=== PATIENT | male | born 1995 | race Caucasian/White ===

== ENCOUNTER 2018-01-20 14:46 | Outpatient (RCR) | payer SELFPAY ==
--- NOTE | 2018-01-20 15:04 | COCO.VHC ---
Follow up/Problem - Follow up/Problem Issue Follow Up/Problem: Follow Up - Notes SR #:: [id number] [facility] REP Name:: Babita Notes:: Pt left vm that he created an account and it was not showing that he was enrolled in a plan. he should have just created asign on so that [facility] could connect him to my acct. Pt has not made a payment so no [facility] ID has been issied for him. i called pt and suggested that he call in and make the payment so that an ID can be issued that he can give to the [facility].
--- NOTE | 2018-01-20 15:15 | PDOC.VHC_ITS ---
Follow up/Problem - Follow up/Problem Issue Follow Up/Problem: Follow Up - Notes SR #:: [id number] [facility] REP Name:: Babita Notes:: Pt left vm that he created an account and it was not showing that he was enrolled in a plan. he should have just created asign on so that [facility] could connect him to my acct. Pt has not made a payment so no [facility] ID has been issied for him. i called pt and suggested that he call in and make the payment so that an ID can be issued that he can give to the [facility].
== END 2018-02-15 23:59 | disposition home or self-care (01) ==
LOC: COCO 14:46
PROVIDERS: PCP Family Medicine; Visit Provider Family Medicine

== ENCOUNTER 2019-01-27 19:35 | Outpatient (REF) | payer OTHER, SELFPAY ==
[2019-01-29 12:20] LABS: Chlamydia Result Negative; GC Result Negative; Specimen Description URINE
== END 2019-01-27 19:55 ==
LOC: LBN 19:35
PROVIDERS: PCP Family Medicine; Visit Provider Family Medicine
DX: N45.1 Epididymitis (principal)
CPT/HCPCS: 87491; 87591

== ENCOUNTER 2020-11-29 15:57 | Outpatient (CLI) | payer BC, SELFPAY ==
[2020-11-29 08:50] LABS: Hemoglobin A1C 4.9 % (<5.7)
[2020-11-29 09:34] LABS: ALT 43 U/L (16-63); AST 17 U/L (15-37); Albumin 4.6 g/dL (3.4-5.0); Alkaline Phosphatase 53 U/L (46-116); Anion Gap 9.3 mmol/L (3-11); BUN 14 mg/dL (7-18); Bilirubin, Total 0.5 mg/dL (0.2-1.0); CO2 28.7 mmol/L (21.0-32.0); CREATININE 0.9 mg/dL (0.70-1.30); Calcium 9.3 mg/dL (8.5-10.1); Chloride 104 mmol/L (98-107); Glucose 91 mg/dL (74-106); Potassium 4.1 mmol/L (3.5-5.1); Sodium 142 mmol/L (136-145); Total Protein 7.9 g/dL (6.4-8.2)
[2020-11-29 20:51] LABS: Calculated LDL 131 mg/dL (<100); Cholesterol 198 mg/dL (<200); HDL Cholesterol 48 mg/dL (40-60); Triglyceride 95 mg/dL (<150)
== END 2020-11-29 15:58 | disposition home or self-care (01) ==
LOC: LBO 15:57
PROVIDERS: PCP Nurse Practitioner Family; Visit Provider Nurse Practitioner Family
DX: Z00.00 Encounter for general adult medical examination without abnormal findings (principal); Z13.1 Encounter for screening for diabetes mellitus; Z13.220 Encounter for screening for lipoid disorders
CPT/HCPCS: 36415; 80053; 80061; 83036

== ENCOUNTER 2021-12-31 08:21 | Outpatient (CLI) | payer BC, SELFPAY ==
--- NOTE | 2021-12-31 08:15 | RT.EKG_ITS ---
APPROVED REPORT Exam: Resting ECG Reason for Exam: dizziness Patient Location: O HR:61 bpm ECG Measurements Heart Rate 61 AXIS MO 137 P 51 QRSd 101 QRS 73 QT 399 T 59 QTc 402 Conclusion Sinus rhythm...normal P axis, V-rate 50- 99 Normal Electrocardiogram
== END 2021-12-31 08:22 | disposition home or self-care (01) ==
LOC: DI.CM 08:21
PROVIDERS: PCP Nurse Practitioner Family; Visit Provider Nurse Practitioner Family
DX: I10 Essential (primary) hypertension (principal); R42 Dizziness and giddiness
CPT/HCPCS: 93010

== ENCOUNTER 2022-02-06 02:55 | Outpatient (CLI) | payer BC, SELFPAY ==
[2022-02-06 08:07] LABS: HCT 43.6 % (40.0-50.0); MCH 30.4 pg (27.0-33.0); MCHC 34.4 % (32.0-36.0); MCV 88 fL (80-95); MPV 9.4 fL (8.0-11.0); Platelet Count 239 10^3/uL (130-400); RBC 4.93 10^6/uL (4.36-5.78); RDW 11.9 % (11.8-14.1); RDW-SD 38.9 fL; WBC 4.47 10^3/uL (4.4-10.8)
== END 2022-02-06 02:56 | disposition home or self-care (01) ==
PROVIDERS: PCP Nurse Practitioner Family; Visit Provider Nurse Practitioner Family
DX: R42 Dizziness and giddiness (principal)
CPT/HCPCS: 36415; 85027

== ENCOUNTER 2023-01-23 10:01 | Outpatient (CLI) | payer BC, SELFPAY | END 2023-01-23 10:02 | disposition home or self-care (01) | PROVIDERS: PCP Nurse Practitioner Family; Visit Provider Nurse Practitioner Family | DX: R00.2 Palpitations (principal) | CPT/HCPCS: 93246 ==

== ENCOUNTER 2023-02-24 07:29 | Outpatient (CLI) | payer BC, SELFPAY ==
--- NOTE | 2023-02-24 09:02 | W.CARDEVENT ---
Date of service: 02/24/23 Time of Service: 09:02 Cardiac Event Recorder Referring Provider:: Roger Najera Indications:: Palpitations Cardiac Event Note: This is a cardiac event monitor ordered for palpitations. Patient was monitored for 13 days and 7 hours Rhythm throughout was sinus with an average heart rate of 71. Minimum was 41, maximum 162 There were very rare isolated atrial and ventricular ectopic beats There was no atrial fibrillation, no SVT, no high-grade AV block, no pauses greater than 3 seconds Symptoms were reported which had no correlation to any dysrhythmia
== END 2023-02-24 07:30 | disposition home or self-care (01) ==
LOC: CARDOPNVT 07:29
PROVIDERS: PCP Nurse Practitioner Family; Visit Provider Internal Medicine Cardiovascular Disease
DX: R00.2 Palpitations (principal)

== ENCOUNTER 2023-06-01 14:07 | Emergency (ER) | payer BC, SELFPAY ==
[2023-06-01 14:14] VITALS: BP 156/86; PULSE 92; RESP 18; TEMP 36.8; O2SAT 99
--- NOTE | 2023-06-01 14:31 | ED.GENADUL_ITS ---
HPI General Stated Complaint: Laceration CHAYITO: 4 Date/Time Provider Initiated Documentation: 06/01/23 14:18. HPI Narrative: MDM This is an overall very well-appearing normothermic and not tachycardic dnaud-tati-vunigwdy male with right long finger laceration which will require primary closure in the ED. Patient has intact flexor tendon function so my suspicion for tendon injury is exceedingly low. His tetanus has been updated in the past 3 years so no indication for updated immunization. Patient is not anticoagulated so not at ongoing risk for recurrent bleeding. No indication for prophylactic antibiotics. No pain out of proportion to suggest necrotizing soft tissue infection. Patient's wound was closed using nonabsorbable sutures. Please see separate procedure note for details. Emergency department Cattle Examiner Alex dressed the patient's wound. Given the superficial nature of the laceration no indication for plain films. Given laceration with knife my suspicion for retained foreign body was exceedingly low so I did not feel that the patient required x-rays. I advised ED return or PCP or urgent care follow- up in 7 to 10 days to have the sutures removed. We also discussed ED return for any fevers, streaking signs of infection, foul-smelling drainage or any pus from his wound. He understood his return indications and was discharged with empiric trial of expectant outpatient management. In the emergency department he received acetaminophen and ibuprofen for pain. Chronic conditions affecting the care of the patient: N/A History obtained from an outside historian: N/A External record review: N/A Medications: Acetaminophen ibuprofen Social determinants of health affecting disposition: N/A Management discussed with: N/A Treatment/interventions considered: N/A Response to therapies provided: N/A HPI This is a previously healthy phsdc-gzbf-frlykiki male arrived to the emergency department via private vehicle after a laceration he sustained this afternoon to his right long finger. Patient was reportedly opening a new X-Acto knife when he inadvertently cut his long finger on the blade. He reports that his tetanus was updated in 2020. He is not anticoagulated. He has been moving his finger without limitations. No other injuries. Was in his previous state of health earlier today with no fevers chills nausea vomiting chest pain or shortness of breath. Exam General: Well-appearing in no acute distress speaking in complete sentences. Head: Normocephalic, atraumatic. Eye: Extraocular eye movements intact. No conjunctival injection. No scleral icterus. Ear, nose, mouth, throat: Grossly normal inspection. Normal voice, handling secretions normally. Neck: Trachea midline. Cardiovascular: Well-perfused distal extremities. Respiratory: Nonlabored respiration. Gastrointestinal: Nondistended abdomen. Musculoskeletal: On the palmar surface of the right long finger there is a crescentic approximately 2 cm hemostatic laceration that violates the subcutaneous tissue. Patient has intact sensation and motor function in the right hand across the radial, median, and ulnar nerve distributions. He has 2+ right radial pulse. Cap refill in the right long finger is less than 2 seconds. He is intact motor function in the right long finger across the MCP, PIP, and DIP joints on flexion and extension. Skin: Normal for age and race, grossly normal temperature and turgor. No acute rash. Neurologic: Alert and appropriate, no apparent acute deficits. Psychiatric: Mood and manner are appropriate. Grooming and personal hygiene are appropriate. Related Data Home Medications Medication Instructions Recorded Confirmed acetaminophen 500 mg capsule 500 mg PO QID PRN 05/13/18 02/19/23 triamcinolone acetonide 0.1 % 1 applic topical BID #30 grams 11/22/20 02/19/23 topical cream sertraline 50 mg tablet 50 mg PO DAILY #90 tabs 01/17/23 06/01/23 Previous Rx's Medication Instructions Recorded triamcinolone acetonide 0.1 % 1 applic topical BID #30 grams 11/22/20 topical cream sertraline 50 mg tablet 50 mg PO DAILY #90 tabs 01/17/23 Allergies Allergy/AdvReac Type Severity Reaction Status Date / Time No Known Allergies Allergy Verified 02/19/23 10:00 [facility] All Active Problems (Updated 06/01/23 @ 15:21 by Rick Sharpe MD) Laceration of right middle finger (Acute) Heart palpitations (Acute) Dizziness (Acute) Infrequently Anxiety (Chronic) Medical History (Updated 06/01/23 @ 15:21 by Rick Sharpe MD) History of concussion Social History (Updated 11/24/20 @ 10:05 by Monty Montana) Smoking/Tobacco Use Status: Never Smoking risk assessment performed?: Yes Alcohol Intake: current Alcohol Intake frequency: holidays/special occasions only Drug use: Occasionally Substance use type: marijuana Caregiver/Support person: No Household members: significant other Housing: house Communication Needs: None Do you need help understanding health information?: Rarely Pets and animals: Yes Pets and animals: cat(s) and dog(s) Sexually active: Yes Do you think of yourself as: straight/heterosexual Current gender identity: male What is your relationship status?: living with partner How often do you talk on the phone with friends or family?: three or more times per week How often do you get together with friends or relatives?: twice per week How often do you attend catholic or jainism services?: decline to answer Do you belong to any clubs or organized social groups?: no Panel score (0-1 are the most socially isolated patients): 2 What type of physical activity do you participate in: walking Duration: 30-45 minutes/day Frequency: 3-4 times per week Rosemary/Latter Day: No preference Special rosemary needs: No Seatbelt use: always Helmet use: Yes Helmet use: always Drive intox or ride w/intox route salesman and driver: No Do you feel safe at home: Yes Do you feel safe in your relationship?: Yes Course Vital Signs Vital signs: Vital Signs Temperature 36.8 C 06/01/23 14:14 Pulse 92 H 06/01/23 14:14 Respiratory Rate 18 06/01/23 14:14 Blood Pressure 156/86 H 06/01/23 14:14 Pulse Oximetry 99 06/01/23 14:14 Temperature 36.8 C 06/01/23 14:14 Temperature Source Oral 06/01/23 14:14 Pulse 92 H 06/01/23 14:14 Respiratory Rate 18 06/01/23 14:14 Blood Pressure 156/86 H 06/01/23 14:14 Blood Pressure Position Sitting 06/01/23 14:14 Pulse Oximetry 99 06/01/23 14:14 Oxygen Delivery Method Room Air 06/01/23 14:14 Oxygen Flow Rate 0 06/01/23 14:14 Pain Level 0 06/01/23 14:14 Procedures Laceration Laceration 1: Site: upper extremity Side (If applicable): right Size (cm): 2 Description: linear Depth: simple, single layer Local Anesthetic: Lidocaine 1% (Digital block) Pre-repair: wound explored and irrigated extensively (Irrigated extensively using cold tap water) Skin layer closed with: other (5-0 Prolene) Size (cm): 5-0 Number of sutures: 5 Technique: simple, interrupted Medical Decision Making Quality:SDOH Health Related Social Needs: No Data to Display Discharge Plan Disposition Patient Disposition: Home Discharge Details Clinical Impression: Laceration of right middle finger Primary Care Provider: Roger Najera ED Provider: Rick Sharpe Home Meds and New Rx's Prescriptions: Continued triamcinolone acetonide 0.1 % cream 1 applic topical BID Qty: 30 2RF sertraline 50 mg tablet 50 mg PO DAILY Qty: 90 3RF acetaminophen 500 mg capsule 500 mg PO QID PRN Discharge Instructions Instructions: Finger Laceration (ED) Additional Instructions: You were seen in the emergency department for your finger laceration. Your tetanus indeed was updated in 2020. Please return to the emergency department if you develop fevers streaking signs of infection or any worsening pain. Please follow-up with your primary care urgent care or return to the emergency department in 7 to 10 days to have your sutures removed. For your pain please take medications as follows: 1. Take acetaminophen (Tylenol), 1,000 mg (two 500 mg tabs) every 6 hours [2. Take ibuprofen (Advil), 400 mg every 6 hours.] Discharge Data Discharge Date/Time-TO BE ENTERED AT DEPARTURE: 06/01/23 15:43
[2023-06-01] MEDS: Ibuprofen 600 MG TAB PO (15:27)
[2023-06-01] MEDS: Acetaminophen 500 MG TAB 1000 MG PO (15:28)
== END 2023-06-01 15:43 | disposition home or self-care (01) ==
PROVIDERS: Emergency Provider Emergency Medicine; PCP Nurse Practitioner Family
DX: S61.242A Puncture wound with foreign body of right middle finger without damage to nail, initial encounter (principal); W26.0XXA Contact with knife, initial encounter
CPT/HCPCS: 12001

== ENCOUNTER 2023-12-03 10:33 | Outpatient (CLI) | payer BC, SELFPAY ==
[2023-12-03 12:31] LABS: Calculated LDL 160 mg/dL (<100); Cholesterol 230 mg/dL (<200); HDL Cholesterol 43 mg/dL (40-60); Triglyceride 135 mg/dL (<150)
[2023-12-03 12:35] LABS: Hemoglobin A1C 5.1 % (<5.7)
== END 2023-12-03 10:34 | disposition home or self-care (01) ==
LOC: LOS 10:33
PROVIDERS: PCP Nurse Practitioner Family; Referring Provider Nurse Practitioner Family; Visit Provider Nurse Practitioner Family
DX: Z13.220 Encounter for screening for lipoid disorders (principal); Z13.1 Encounter for screening for diabetes mellitus
CPT/HCPCS: 36415; 80061; 83036

== ENCOUNTER 2024-03-27 16:09 | Emergency (ER) | payer BC, SELFPAY ==
[2024-03-27] VITALS (8 sets, daily range): BP systolic 122–188; BP diastolic 45–85; PULSE 70–105; RESP 10–22; TEMP 36.6–36.7; O2SAT 91–100
--- NOTE | 2024-03-27 16:15 | DI.RAD_ITS ---
Exam(s) XR ANKLE RT COMPLETE XR TIB/FIB RT EXAM: XR ANKLE RT COMPLETE and XR tib/fib RT CLINICAL HISTORY: pain s/p fall. TECHNIQUE: 2D digital imaging was performed of the right tib/fib and ankle. Seven images were obtai richie. AP, lateral and oblique views were obtained. COMPARISON: There are no priors for comparison. FINDINGS: BONES: There is an acute comminuted fracture of the distal diaphysis of the right fibula. The fractu re occurs 4 cm above the ankle mortise. There is mild posterior angulation and displacement of the d istal fracture. There is also an acute mildly displaced posterior malleolar fracture. There is a co mminuted fracture of the medial malleolus. No bony destructive lesion is seen. JOINTS: There is widening of the ankle joint particularly anteriorly as appreciated on the lateral vi ew. There also is very mild anterior subluxation of the tibia relative to the talus. SOFT TISSUE: There is soft tissue swelling around the ankle. IMPRESSION: 1. Acute displaced fractures involving both the posterior malleolus in the medial malleolus. 2. Comminuted angulated fracture involving the distal fibula. 3. Widening of the ankle joint particularly anteriorly with mild anterior subluxation of the tibia re lative to the talus. DATA REPOSITORY: RADIATION DOSE DELIVERED:
--- NOTE | 2024-03-27 16:23 | W.ED.GENAD ---
Discharge Plan Disposition Patient Disposition: Home Condition: Stable Discharge Details Clinical Impression: Ankle fracture, right Primary Care Provider: Roger Najera ED Provider: Zaire Nava Home Meds and New Rx's Prescriptions: New Morphine Ir, 4 Tabs/Btl [Msir, 4 Tabs/Btl] 15 mg PO DISPENSE Qty: 0 0RF Continued sertraline 50 mg tablet 50 mg PO DAILY Qty: 90 3RF Discontinued triamcinolone acetonide 0.1 % cream 1 applic topical BID Qty: 30 2RF No Action acetaminophen 500 mg capsule 500 mg PO QID PRN Discharge Instructions Additional Instructions: You had a fracture and dislocation of your ankle that had to be reduced under sedation. You should remain nonweightbearing until you follow-up with orthopedics. Call their office on Friday. I would also recommend having nothing by mouth except water after midnight on Friday in case they have the ability to do surgery on Friday. You can take 1000 mg of acetaminophen and 600 mg of ibuprofen every 6 hours as needed If you need additional pain medication he can take the morphine every 8 hours. If you feel more ill or have severe uncontrolled pain return to the emergency department for reevaluation. Referrals: Mohsen Warren MD [ [facility] STAFF PHYSICIAN] - [facility] General Mode of arrival: wheelchair. Date/Time Provider Initiated Documentation: 03/27/24 16:15. Limitations to Documentation: no limitations. Information obtained by: patient. History of Present Illness 29 year old M presents to the emergency department with the chief complaint of right ankle pain, described as moderate, and is localized to the right and lower extremity. Patient started experiencing this hour(s) (1) and it has been constant. No relieving factors improve symptom(s), Movement worsens symptoms . Patient notes no other symptoms.. Patient did receive the following treatments prior to arrival, none Related Data Home Medications ?Medication ?Instructions ?Recorded ?Confirmed acetaminophen 500 mg capsule 500 mg PO QID PRN 05/13/18 03/27/24 sertraline 50 mg tablet 50 mg PO DAILY #90 tabs 02/11/24 03/27/24 MORPHine IR, 4 tabs/btl [MSIR, 4 15 mg PO DISPENSE ##0 03/27/24 tabs/btl] Previous Rx's ?Medication ?Instructions ?Recorded sertraline 50 mg tablet 50 mg PO DAILY #90 tabs 02/11/24 MORPHine IR, 4 tabs/btl [MSIR, 4 15 mg PO DISPENSE ##0 03/27/24 tabs/btl] Allergies Allergy/AdvReac Type Severity Reaction Status Date / Time childrens motrin Allergy Intermediate Psychosis Uncoded 03/27/24 16:14 General Stated Complaint: Orthopedic CHAYITO: 3 Review of Systems All systems reviewed & are unremarkable except as noted in HPI and below Constitutional Constitutional: Denies chills, Denies fever(s) and Denies weakness Cardiovascular Cardiovascular: Denies chest pain and Denies dyspnea Respiratory Respiratory: Denies cough and Denies dyspnea Gastrointestinal Gastrointestinal: Denies abdominal pain, Denies nausea and Denies vomiting Integumentary/Breasts Skin/Breast: Denies rash Neurologic Neurologic: Denies weakness Exam Const General: no acute distress Orientation: alert HENMT Head: normal to inspection Ears: external ears normal General nose exam: external nose normal Mouth: moist mucous membranes Eyes General: appearance normal, both eyes and all related structures Neck Neck: normal visual inspection Resp Effort & Inspection: normal respiratory effort and able to speak in complete sentences Cardio Rate: regular rate Skin General skin exam: no rashes or lesions noted Neuro General: patient alert and patient oriented x3 Extrem General: capillary refill normal Psych Mental Status: mental status grossly normal Course Vital Signs Vital signs: Vital Signs Temperature 36.6 C 03/27/24 16:12 Pulse 100 H 03/27/24 16:12 Respiratory Rate 16 03/27/24 16:12 Blood Pressure 146/83 H 03/27/24 16:12 Pulse Oximetry 100 03/27/24 16:12 Temperature 36.6 C 03/27/24 16:12 Temperature Source Oral 03/27/24 16:12 Pulse 100 H 03/27/24 16:12 Respiratory Rate 16 03/27/24 16:12 Respiratory Effort Normal, Non-Labored 03/27/24 16:15 Blood Pressure 146/83 H 03/27/24 16:12 Pulse Oximetry 100 03/27/24 16:12 Oxygen Delivery Method Room Air 03/27/24 16:12 Oxygen Flow Rate 0 03/27/24 16:12 Pain Level 5 03/27/24 16:12 Procedures Procedural Sedation Indication: fracture/dislocation reduction ASA Class: I Preparation: rn cardiac rehab applied, pulse oximeter, capnometry used, supplemental O2 applied and suction/airway equipment at bedside Ketamine: IV Ketamine dose (mg): 140 Patient Tolerated Procedure: well Complications: none Medical Decision Making 29-year-old male who denies any chronic medical problems comes in with right ankle injury. He says he was on wheeled shoes when he fell backwards. He did not strike his head or have loss of consciousness but had immediate pain in his right ankle. He has tenderness and swelling of the right ankle and has tenderness throughout. He has no range of motion due to pain. No pain in the foot, no tenderness on exam. He has intact sensation and pulses in the foot. No tenderness in the knee, no tenderness in the femur or hip. He has no pain elsewhere. Suspect fracture/dislocation, will obtain x-rays to further evaluate. X-ray shows fracture of the posterior and medial malleolus and a comminuted angulated fracture involving the distal fibula. Patient is stable no new pain elsewhere. He consents to sedation to try to reduce the fracture dislocations. No complications after patient was sedated with 140 mg of ketamine. Follow-up x-rays show improved reduction of fracture dislocations. Patient is neurovascularly intact, has normal sensation in the foot. Is able to move all his toes. I have placed him on the follow-up list to see orthopedics and he will remain nonweightbearing. Return precautions given. IMPRESSION: 1. Acute displaced fractures involving both the posterior malleolus in the medial malleolus. 2. Comminuted angulated fracture involving the distal fibula. 3. Widening of the ankle joint particularly anteriorly with mild anterior subluxation of the tibia relative to the talus. Differential Diagnosis Differential Diagnosis: Fracture, dislocation, sprain Quality:SDOH Health Related Social Needs: No Data to Display PFSH All Active Problems (Updated 03/27/24 @ 18:26 by Zaire Nava MD) Ankle fracture, right (Acute) Obesity (BMI 30-39.9) (Acute) Heart palpitations (Acute) Dizziness (Acute) Infrequently Anxiety (Chronic) Medical History History of concussion Family History (Updated 12/03/23 @ 10:09 by Greta Easton) Father Heart disease Social History (Updated 12/09/23 @ 13:38 by Dayana Devlin Smoking/Tobacco Use Status: Never Smoking risk assessment performed?: Yes Alcohol Intake: never Drug use: Daily Substance use type: marijuana Counseling given: No Adopted: No Caregiver/Support person: No Household members: spouse Housing: house Communication Needs: None Education Level: college Do you need help understanding health information?: Never current occupation: salesperson Pets and animals: Yes Pets and animals: cat(s) and dog(s) Sexually active: Yes Do you think of yourself as: straight/heterosexual Current gender identity: male What is your relationship status?: How often do you talk on the phone with friends or family?: twice per week How often do you get together with friends or relatives?: twice per week Do you belong to any clubs or organized social groups?: no Panel score (0-1 are the most socially isolated patients): 2 What type of physical activity do you participate in: walking Duration: 60-90 minutes/day Frequency: daily Rosemary/Yazidism: Non buddhist Special rosemary needs: No Seatbelt use: always Helmet use: Yes Helmet use: always Drive intox or ride w/intox race car driver: No Firearms in home: Yes Firearms unloaded and locked: Yes Do you feel safe at home: Yes Do you feel safe in your relationship?: Yes Victim of physical abuse: No Victim of emotional abuse: No Victim of sexual abuse: No Would you like helpful sources: No
[2024-03-27] MEDS: HYDROmorphone 2 MG/ML SYR 1 MG IVP (16:40)
[2024-03-27] MEDS: Ketorolac 15 MG/ML VIAL IVP (16:40)
--- NOTE | 2024-03-27 17:45 | DI.RAD_ITS ---
Exam(s) XR ANKLE RT 2V EXAM: XR ANKLE RT 2V CLINICAL HISTORY: s/p reduction attempt. TECHNIQUE: 2D digital imaging was performed of the right ankle. Two images were obtained. AP and l ateral views were obtained. COMPARISON: CR XR ANKLE RT COMPLETE from 03/27/2024 FINDINGS: The patient's ankle is in a cast which does obscure the underlying bony detail. There has been impro alessandro alignment of the distal fibular fracture which now shows very mild lateral displacement of the di stal fracture. The angulation has resolved. There is also been improved alignment of the displaced comminuted medial malleolar fracture. The ankle has been successfully reduced. IMPRESSION: Overall improved alignment of the ankle fracture with reduction of the ankle joint subluxation.. DATA REPOSITORY: RADIATION DOSE DELIVERED:
--- NOTE | 2024-03-27 17:54 | RESPIRATORY ---
Paged to ED for conscious sedation. Patient placed on NC with EtCO2 monitoring on RA. Ambu bag, oral airway and suction at bedside. HR 96, RR 12, EtCO2 39 and SpO2 100% on RA. Patient briefly required 3L O2 due to desaturation to 89%. RT able to titrate O2 back to RA immediately after procedure. Patient tolerated well with no complications.
[2024-03-27] MEDS: Ondansetron 4 MG/2 ML VIAL IVP (17:59)
[2024-03-27] MEDS: Ketamine 500 MG/10 ML VIAL 240 MG IVP (18:11)
[2024-03-27] MEDS: Prochlorperazine 10 MG/2 ML VIAL IVP (18:16)
[2024-03-27] MEDS: MORPHine IR 15 MG TAB, 4 TABS/BTL PO (19:27)
--- NOTE | 2024-03-28 13:22 | NUR.NOTE ---
Accessed chart for [facility] billing purposes. Nursing Note:
== END 2024-03-27 19:25 | disposition home or self-care (01) ==
PROVIDERS: Emergency Provider Emergency Medicine; PCP Nurse Practitioner Family
DX: S82.451A Displaced comminuted fracture of shaft of right fibula, initial encounter for closed fracture (principal); S82.841A Displaced bimalleolar fracture of right lower leg, initial encounter for closed fracture; W18.39XA Other fall on same level, initial encounter
CPT/HCPCS: 96374; 96375; 99152; 99153; 99285; 73590; 73600; 73610; J0780; J1171; J1885; J2405